=== PATIENT | male | born 1950 | race Caucasian/White ===

== ENCOUNTER 2017-06-19 08:17 | Emergency (ER) | payer BC, MEDICARE | END 2017-06-19 10:03 | disposition home or self-care (01) | LOC: EDH 08:17 | DX: S83.8X1A Sprain of other specified parts of right knee, initial encounter (principal); I10 Essential (primary) hypertension; E11.9 Type 2 diabetes mellitus without complications; Z88.0 Allergy status to penicillin; Z91.041 Radiographic dye allergy status; X58.XXXA Exposure to other specified factors, initial encounter; Y93.89 Activity, other specified; Y92.89 Other specified places as the place of occurrence of the external cause; Y99.8 Other external cause status | CPT/HCPCS: 29505; 73562 ==

== ENCOUNTER 2020-01-30 20:39 | Emergency (ER) | payer MEDICARE ==
[2020-01-30] MEDS ORDERED: CEPHALEXIN 500 MG CAPSULE ONE (21:52)
== END 2020-01-30 22:03 | disposition home or self-care (01) ==
LOC: EDH 20:39
DX: S61.239A Puncture wound without foreign body of unspecified finger without damage to nail, initial encounter (principal); E11.9 Type 2 diabetes mellitus without complications; I10 Essential (primary) hypertension; Z88.0 Allergy status to penicillin; Z91.041 Radiographic dye allergy status; W34.09XA Accidental discharge from other specified firearms, initial encounter; Y93.89 Activity, other specified; Y92.098 Other place in other non-institutional residence as the place of occurrence of the external cause; Y99.8 Other external cause status
CPT/HCPCS: 73140

== ENCOUNTER 2022-04-07 19:14 | Emergency (ER) | payer OTHER ==
[~2022-04-07] VITALS: Ht 175.3 cm; Wt 88.0 kg
[~2022-04-07 19:14] MED LIST: ATEN100T PO; CILO50TA2 PO; GLIP5TAB11 PO; LISI20TA24 PO; METF-446 PO; NABU-143 PO; SIMV-43 PO; SODI100037 PO
[2022-04-07 22:26] VITALS: BP 138/76
== END 2022-04-07 22:32 | disposition home or self-care (01) ==
LOC: EDH 19:14
DX: H59.322 Postprocedural hemorrhage of left eye and adnexa following other procedure (principal); E11.9 Type 2 diabetes mellitus without complications; E78.00 Pure hypercholesterolemia, unspecified; I10 Essential (primary) hypertension; Z79.1 Long term (current) use of non-steroidal anti-inflammatories (NSAID); Z79.84 Long term (current) use of oral hypoglycemic drugs; Z79.899 Other long term (current) drug therapy; Z88.0 Allergy status to penicillin; Z88.8 Allergy status to other drugs, medicaments and biological substances